=== PATIENT | female | born 1950 | race Hispanic/Latino ===

== ENCOUNTER 2017-02-15 06:18 | Day surgery (SDC) | payer MEDICARE ==
[2017-02-11 12:42] VITALS: BMI 29.8
[2017-02-15] MEDS ORDERED: Propofol 10 mg/ml Inj (20 ML) ONE (09:03)
[2017-02-15] MEDS ORDERED: Lactated Ringer's 1,000 ML IV ONE (09:15)
[2017-02-15] MEDS ORDERED: HYDROmorphone 0.5 mg/0.5 ml ISec IVP PRN (09:39)
--- NOTE | 2017-02-15 09:52 | PCM.SURG1 ---
Surgeon's Initial Post Op Note - Surgeon's Notes Surgeon: Amanda Calvert MD [employer] Consultant: none Type of Anesthesia: General LMA Pre-Operative Diagnosis: Postmenopausal bleeding, Atypical endometrial glandular cells suspioucs for endo metrial cancer Operative Findings: anteverted utuers, bilateral ostia visualized, no adnexla masses, uteurs souned to 8cm, 3cm endometrial mass attached to fundus protruding directly into cavity resected under direct visulzation using myosure device. urince output 50cc clear yellow urine Post-Operative Diagnosis: same as above Operation Performed: Operative hysteroscopy, fractional dilation and currettage , resection of endometrial mass Specimen/Specimens Removed: endometrial currettings, endocervical currettings, endometrial mass Estimated Blood Loss: EBL {In ML}: 10 Blood Products Given: N/A Drains Used: No Drains Date of Surgery/Procedure: 02/15/17 Time of Surgery/Procedure: 09:00
[2017-02-15 11:51] VITALS: RESP 16
[2017-02-15 12:16] VITALS: BP 105/58; PULSE 81; TEMP 97.5; O2SAT 95
--- NOTE | 2017-02-15 15:37 | OP ---
PROCEDURE DATE: 02/16/2017 PREOPERATIVE DIAGNOSIS: Postmenopausal bleeding, atypical endometrial glandular cells suspicious for endometrial cancer. POSTOPERATIVE DIAGNOSES: Postmenopausal bleeding, atypical endometrial glandular cells suspicious for endometrial cancer. OPERATION PERFORMED: Operative hysteroscopy, fractional dilation and curettage, resection of endometrial mass. OPERATIVE FINDINGS: Anteverted uterus, bilateral ostia visualized, no adnexal masses, uterus sounded to 8 cm, 3 cm endometrium mass attached to the fundus, proceeding directly into cavity, resected under visualization using MyoSure device. SURGEON: Amanda Calvert MD [employer] CUTTER: Elgin Junior MD TYPE OF ANESTHESIA: General LMA. URINE OUTPUT: 50 mL clear urine. SPECIMEN REMOVED: Endometrial curettings, endocervical curettings and endometrial masses. ESTIMATED BLOOD LOSS: Less than 10 mL. BLOOD PRODUCTS: None. COMPLICATIONS: None. DESCRIPTION OF PROCEDURE: The patient was taken to the operating room, where she was given general anesthesia. Once found to be adequate, she was placed on the operating table in dorsal supine position. The patient was prepped and draped in the usual sterile fashion. A time-out confirmed correct patient and correct procedure. A red rubber catheter was then inserted into the urethra to drain the bladder. Bimanual exam was performed with the above-mentioned findings. A Aguilera retractor was placed in the anteroposterior fornix of the vagina. The cervix was adequately visualized. Single-toothed tenaculum was placed on the anterior lip of the cervix. The uterus was sounded. The cervix was sequentially dilated with a Rachid dilator to allow for introduction of the hysteroscope under direct visualization using normal saline as a distention media. There was endometrial mass noted to be protruding within the cavity. A MyoSure device was then inserted under direct visualization and the mass was resected entirely in direct visualization. The MyoSure device was then removed and the endocervical curettings were obtained with Kevorkian curette prior to sounding uterus and endometrial curettings were then obtained 360 degrees until a gritty texture was noted and sent to pathology on [facility]. All instruments were removed. There was good hemostasis noted at the tenaculum puncture site. At the end of the procedure all needle, sponge, and instrument counts were noted and correct x2. The patient tolerated the procedure well and was transferred to the recovery room in stable condition. Amanda Calvert MD [facility] # [id number]
== END 2017-02-15 12:16 | disposition home or self-care (01) ==
LOC: C.SDS 06:18
PROVIDERS: ATTEND Obstetrics & Gynecology
DX: N95.0 Postmenopausal bleeding (principal); D25.9 Leiomyoma of uterus, unspecified
CPT/HCPCS: 58563; 88305; J2704; J3010; J7120